=== PATIENT | female | born 1945 | race Caucasian/White ===

== ENCOUNTER 2017-02-26 10:15 | Emergency (ER) | payer MEDICARE, OTHER ==
[2017-02-26 11:01] VITALS: BP 147/81
--- NOTE | 2017-02-26 12:06 | UC ---
Ear Complaint HPI - HPI Summary HPI Summary: 71 yo female with JUAN R presents with left ear feeling plugged x one month now with otalgia and dizziness x 2 days - History of Current Complaint Chief Complaint: UCEar Stated Complaint: EAR PAIN,DIZZINESS Time Seen by Provider: 02/26/17 11:52 Hx Obtained From: Patient Onset/Duration: Gradual Onset, Lasting Days, Lasting Weeks Severity Initially: Mild Severity Currently: Mild Pain Intensity: 4 Pain Scale Used: 0-10 Numeric Aggravating Factors: Nothing Alleviating Factors: Nothing Associated Signs/Symptoms: Positive: Hearing Loss, URI Symptoms Related History: Seasonal Allergies - Allergies/Home Medications Allergies/Adverse Reactions: Allergies Allergy/AdvReac Type Severity Reaction Status Date / Time No Known Allergies Allergy Verified 02/26/17 10:58 Home Medications: Home Medications Aspirin Low Dose CHEW TAB* [Aspirin Low Dose TAB*] 81 mg PO DAILY 02/26/17 [ History Confirmed 02/26/17] Blood Thinner 1 dose PO DAILY 02/26/17 [History Confirmed 02/26/17] Rosuvastatin Calcium [Crestor] 40 mg PO DAILY 02/26/17 [History Confirmed ] PMH/Surg Hx/FS Hx/Imm Hx Previously Healthy: Yes Endocrine History: Dyslipidemia Cardiovascular History: Hypertension - Surgical History Surgical History: Yes Surgery Procedure, Year, and Place: Aortic valve replacement. Hysterectomy - Social History Alcohol Use: Rare Substance Use Type: None Smoking Status (MU): Never Smoked Tobacco Review of Systems Constitutional: Negative Skin: Negative Eyes: Negative ENT: Ear Ache Respiratory: Negative Cardiovascular: Negative Gastrointestinal: Negative Genitourinary: Negative Motor: Negative Neurovascular: Negative Musculoskeletal: Negative Neurological: Negative Psychological: Negative All Other Systems Reviewed And Are Negative: Yes Physical Exam Triage Information Reviewed: Yes Appearance: Well-Appearing, No Pain Distress, Well-Nourished Vital Signs: Initial Vital Signs Temp 98.1 F 02/26/17 10:55 Pulse 55 02/26/17 10:55 Resp 14 02/26/17 10:55 BP 147/81 02/26/17 10:55 Pulse Ox 96 02/26/17 10:55 Eyes: Positive: Conjunctiva Clear ENT: Positive: Nasal congestion, Nasal drainage, TM bulging. Negative: Hearing grossly normal, Trismus, Muffled/hoarse voice Neck: Positive: Nontender, No Lymphadenopathy Respiratory: Positive: Chest non-tender, Lungs clear Cardiovascular: Positive: RRR, No Murmur Musculoskeletal: Positive: ROM Intact Neurological: Positive: Alert Psychological Exam: Normal Skin Exam: Normal Ear Complaint Course/Dx - Differential Dx/Diagnosis Provider Diagnoses: left serous otitis media. JUAN R Discharge - Discharge Plan Condition: Stable Disposition: HOME Prescriptions: Amoxicillin (*) [Amoxicillin 875 MG (*)] 875 mg PO BID #20 tab Fluticasone NASAL SPRAY 50MCG* [Flonase NASAL SPRAY 50MCG*] 2 spray BOTH NARES DAILY #1 btl Patient Education Materials: Serous Otitis Media (ED) Referrals: Non Staff,Doctor [Primary Care Provider] - Additional Instructions: you need to find a tow picker recheck in 2-3 weeks if hearing not back to normal
== END 2017-02-26 12:08 | disposition home or self-care (01) ==
LOC: UCCORT 10:15
DX: H65.92 Unspecified nonsuppurative otitis media, left ear (principal); E78.5 Hyperlipidemia, unspecified; I10 Essential (primary) hypertension; Z95.2 Presence of prosthetic heart valve; Z90.710 Acquired absence of both cervix and uterus
CPT/HCPCS: 99202; G0463